=== PATIENT | male | born 1945 | race Caucasian/White ===

== ENCOUNTER 2016-12-08 15:11 | Inpatient (IN) ==
[2016-12-08 15:55] LABS: MANUAL DIFF NEEDED? NO
--- NOTE | 2016-12-08 16:00 | EKG Report ---
Test Performed on : 12/08/2016 3:25:19 PM Test Reason : Chest Pain Blood Pressure : / mmHG Vent. Rate : 102 BPM Atrial Rate : 102 BPM P-R Int : 134 ms QRS Dur : 082 ms QT Int : 348 ms P-R-T Axes : 016 002 041 degrees QTc Int : 453 ms Sinus tachycardia. Inferior infarct , age undetermined Abnormal ECG No previous ECGs available Unconfirmed Result
--- NOTE | 2016-12-08 16:10 | Diag Imaging Result Doc PS360 ---
EXAM: CHEST-2 VIEWS HISTORY: CP TECHNIQUE: PA and lateral COMMENT: There is a small ill-defined opacity which is projected over the right third anterior rib laterally in the right upper lobe. This was not present on 12/03/2016. There is also some blunting the costophrenic angle on the right which may be due to fibrosis although this was not present at the time the previous study either. The heart size and pulmonary vascularity are within normal limits. IMPRESSION: Minimal right upper lobe pneumonia. Electronically signed by Azael Zhao 12/08/2016 4:08 PM
[2016-12-08 16:14] LABS: BASO% 0.5 % (0.0-0.8); EOS# 0.37 X1000 (0.0-0.7); EOS% 4.6 % (0.0-10.0); HEMATOCRIT 39.1 % (42.0-52.0); HEMOGLOBIN 13.1 g/dL (14.0-18.0); LYMPH# 1.09 X1000 (1.2-3.4); LYMPH% 13.5 % (20.5-51.1); MCHC 33.5 g/dL (33-37); MCV 89.5 FL (81-99); MONO# 0.63 X1000 (0.11-0.59); MONO% 7.8 % (1.7-9.3); MPV 8.8 FL (7.4-10.4); NEUT% 73.6 % (42.2-75.2); PLT 211 X1000 (130-400); RBC 4.37 XMIL (4.7-6.1)
[2016-12-08 16:23] LABS: INR 0.97; PROTIME 10.2 Seconds (9.2-11.7); PTT 26.7 Seconds (22.0-36.0)
[2016-12-08 16:33] LABS: AGAP 14; ALBUMIN 3.9 g/dL (3.5-5.0); ALKALINE PHOSPHATASE 72 U/L (32-122); BUN 19 mg/dL (8-22); CHLORIDE 101 mmol/L (98-107); CK PROFILE 76 U/L (24-204); COSMO 279; GOT 17 U/L (10-34); GPT 13 U/L (10-44); MAGNESIUM 2.1 mg/dL (1.5-2.7); POTASSIUM 4.1 mmol/L (3.5-5.1); SODIUM 138 mmol/L (136-145); TCO2 23 mmol/L (25-35); TOTAL BILIRUBIN 0.49 mg/dL (0.20-1.00); TOTAL PROTEIN 6.9 g/dL (6.3-8.3)
[2016-12-08] MEDS ORDERED: MORPHINE IV ONE (17:57)
[2016-12-08] MEDS ORDERED: ZOFRAN IV ONE (17:57)
[2016-12-08] MEDS ORDERED: LOVENOX 1 MG/KG SUBQ ONE (18:45)
--- NOTE | 2016-12-08 18:55 | Diag Imaging Result Doc PS360 ---
EXAM: ANGIOGRAM/PULMONARY ARTERIES HISTORY: SOB, elevated d-dimer TECHNIQUE: CT of the chest with intravenous contrast and dose reduction (clarity.) COMMENT: There is a saddle embolus bridging the left and right main pulmonary arteries. Considerable burden of emboli is present in the interlobar artery on the right. There are also emboli present in some of the segmental branches of the left lower lobe. There is no evidence of aortic dissection. There is a small right pleural effusion. There is atelectasis in both lower lobes. There are no previous studies. There are degenerative changes in the thoracic spine. There are several renal cysts on the right. IMPRESSION: Pulmonary emboli as described including a saddle embolus. The findings were discussed with MADHURI Swenson at 12/08/2016 6:40 PM. Electronically signed by Azael Zhao 12/08/2016 6:52 PM
[2016-12-08] MEDS ORDERED: ROCEPHIN 1 GM/NS 1 GM/50 ML IVPB IV ONE (19:02)
--- NOTE | 2016-12-08 19:17 | PROVIDER DOCUMENTATION ---
This chart was entered by Myesha Andres Scribe, acting as scribe for Mohit Dumont PA. HPI-Respiratory General - General Chief Complaint: Chest Pain Stated Complaint: CHEST PAIN Time Seen by Provider: 12/08/16 17:56 Source: patient Allergies/Adverse Reactions: Patient Allergies Allergy/AdvReac Type Severity Reaction Status Date / Time No Known Allergies Allergy Verified 12/08/16 17:41 Home Medications: Home Medication List Medication Instructions Recorded Confirmed Last Taken Type Aspirin [Aspir-Low] 81 mg PO QAM 12/08/16 12/08/16 12/08/16 History Doxazosin Mesylate [Cardura] 8 mg PO QHS 12/08/16 12/08/16 1 Day Ago History Lisinopril 10 mg PO QAM 12/08/16 12/08/16 12/08/16 History Meclizine [Antivert] 25 mg PO TID 12/08/16 12/08/16 12/08/16 History - History of Present Illness-Resp Nature of Presenting Problem: 71 Y/O M presents to ED with Shortness of Breath. Pt was riding his bike 5 days ago, and had severe pain his right leg and acute SOB. Went to PCP the next day and had an out patient X-ray states he does not what those showed. States increased hurting with breathing that has worsened today. Quality of Pain: reports: tightness Severity in ED: reports: severe Onset/Duration: reports: 5 days ago Timing: reports: still present, changing over time, getting worse Associated Symptoms: reports: hurts to breathe, shortness of breath. denies: cough, earache, wheezing Review of Systems - Adult - REVIEW OF SYSTEMS - ADULT Constitutional: denies: chills, fever Eyes: reports: no symptoms reported Ears, Nose, Mouth & Throat: reports: no symptoms reported Cardiovascular: reports: no symptoms reported Respiratory: reports: shortness of breath, other (hurting to breath). denies: cough Gastrointestinal: reports: no symptoms reported Genitourinary: reports: no symptoms reported Musculoskeletal: reports: no symptoms reported Integumentary: reports: no symptoms reported Neurological: reports: no symptoms reported Psychiatric: reports: no symptoms reported Endocrine: reports: no symptoms reported Hematologic/Lymphatic: reports: no symptoms reported Allergic/Immunologic: reports: no symptoms reported All Other Systems: Reviewed and Negative Past History - Adult - PAST MEDICAL HISTORY-ADULT Review of Records: reports: Old Records Reviewed, Nursing Assessment Review, Medications Reviewed, Social history reviewed & non-contributory. Physical Exam-General - PHYSICAL EXAM-ADULT Initial Vital Signs Reviewed: Yes - CONSTITUTIONAL General Appearance: appears well, alert, no apparent distress - EYES Eyes: PERRL/EOMI, pink conjunctivae - HEAD, EARS, NOSE, MOUTH & THROAT HENMT: normocephalic/atraumatic, moist mucous membranes, normal ENT inspection, TMs normal, pharynx normal - NECK Neck: non-tender, full range of motion, supple, normal inspection - RESPIRATORY Respiratory: chest non-tender, lungs clear, normal breath sounds - CARDIOVASCULAR Cardiovascular: tachycardia - GASTROINTESTINAL (ABDOMEN) Abdominal Exam: normal bowel sounds, non tender, soft - LYMPHATIC Lymphatic: no adenopathy - MUSCULOSKELETAL Back Exam: normal inspection, no CVA tenderness, no vertebral tenderness Extremity: normal range of motion, non-tender, normal gait - SKIN Integumentary: normal color, normal turgor, warm/dry - NEUROLOGIC Neurologic: grossly normal - PSYCHIATRIC Psych/Mental Status: normal mood/affect, normal thought content, normal thought process, oriented x 3 Progress - PLAN OF CARE/RESULTS Progress/Plan/Lab Results: Vital Signs - 8 hr 12/08/16 15:14 12/08/16 18:13 12/08/16 18:58 Temperature 97.9 F Pulse Rate 116 H 83 87 Respiratory Rate 18 20 16 Blood Pressure 141/82 175/102 157/100 O2 Sat by Pulse Oximetry 99 96 96 Laboratory Results - last 24 hr 12/08/16 12/08/16 12/08/16 15:36 15:36 15:36 WBC RBC Hgb Hct MCV MCH MCHC RDW Std Deviation Plt Count MPV Immature Gran % (Auto) Neut % (Auto) Lymph % (Auto) [place] % (Auto) Eos % (Auto) Baso % (Auto) Immature Gran # (Auto) Neut # (Auto) Lymph # (Auto) [place] # (Auto) Eos # (Auto) Baso # (Auto) PT INR PTT (Actin FS) D-Dimer 27.55 H Sodium 138 Potassium 4.1 Chloride 101 Carbon Dioxide 23 L Anion Gap 14 BUN 19 Creatinine 1.1 Estimated GFR/1.73 m2 > 60 BUN/Creatinine Ratio 17 Glucose 116 H Calculated Osmolality 279 Calcium 9.0 Magnesium 2.1 Total Bilirubin 0.49 AST 17 ALT 13 Alkaline Phosphatase 72 Creatine Kinase 76 Troponin T < 0.010 Cdl-S-Gvbvsmkrgaf Pept Total Protein 6.9 Albumin 3.9 Globulin 3.0 Albumin/Globulin Ratio 1.3 12/08/16 12/08/16 12/08/16 15:36 15:36 15:36 WBC 8.05 RBC 4.37 L Hgb 13.1 L Hct 39.1 L MCV 89.5 MCH 30.0 MCHC 33.5 RDW Std Deviation 13.1 Plt Count 211 MPV 8.8 Immature Gran % (Auto) 0.0 Neut % (Auto) 73.6 Lymph % (Auto) 13.5 L [place] % (Auto) 7.8 Eos % (Auto) 4.6 Baso % (Auto) 0.5 Immature Gran # (Auto) 0.00 Neut # (Auto) 5.92 Lymph # (Auto) 1.09 L [place] # (Auto) 0.63 H Eos # (Auto) 0.37 Baso # (Auto) 0.04 PT 10.2 INR 0.97 PTT (Actin FS) 26.7 D-Dimer Sodium Potassium Chloride Carbon Dioxide Anion Gap BUN Creatinine Estimated GFR/1.73 m2 BUN/Creatinine Ratio Glucose Calculated Osmolality Calcium Magnesium Total Bilirubin AST ALT Alkaline Phosphatase Creatine Kinase Troponin T Ujq-T-Nqamgtgaupo Pept 85 Total Protein Albumin Globulin Albumin/Globulin Ratio Orders Category Date Time Status ANGIOGRAM/PULMONARY ARTERIES [CT] Stat Exams 12/08/16 17:56 Completed CHEST-2 VIEWS [RAD] Stat Exams 12/08/16 15:27 Completed BLOOD CULTURE [BLDCUL] Stat Lab 12/08/16 18:47 Received CBC WITH ELECTRONIC DIFF [HEME] Stat Lab 12/08/16 15:36 Completed CK PROFILE [SP CHEM] Stat Lab 12/08/16 15:36 Completed COMPREHENSIVE METABOLIC PANEL [CHEM] Stat Lab 12/08/16 15:36 Completed D-DIMER [CHEM] Stat Lab 12/08/16 15:36 Completed LACTATE, PLASMA [CHEM] Stat Lab 12/08/16 18:47 Received MAGNESIUM [CHEM] Stat Lab 12/08/16 15:36 Completed PRO B-NATRIURETIC PEPTIDE Stat Lab 12/08/16 15:36 Completed PROTIME WITH INR [COAG] Stat Lab 12/08/16 15:36 Completed PTT [COAG] Stat Lab 12/08/16 15:36 Completed TROPONIN T Stat Lab 12/08/16 15:36 Completed CefTRIAXONE 1 GM/NS [Rocephin 1 gm/Ns] Med 12/08/16 19:02 Active 1 gm in 50 ml IV NOW Enoxaparin 1 mg/kg [Lovenox 1 mg/kg] Med 12/08/16 18:45 Discontinued 1 each SUBQ NOW ONE Morphine Med 12/08/16 17:57 Discontinued 4 mg IV NOW ONE Ondansetron [Zofran] Med 12/08/16 17:57 Discontinued 4 mg IV NOW ONE EKG [EKG] Stat Ther 12/08/16 15:27 Draft Result Diagrams: 12/08/16 15:36 12/08/16 15:36 - XRAY 1 XRAY Study: Chest Impression: Abnormal XRAY Interpretation: RUL pneumonia - CT/MRI 1 CT Study: Angiogram Impression: Abnormal CT Results: saddle PE, Spoke with Radiologist - CONSULTS/PCP/HOSPITALIST Notification #1 *Consult/PCP/Hospitalist*: Dr. Charles Time Discussed: 19:14 Reason/Comments: Admit Consult Disposition: Admit (Admit Accepted) Departure - Departure Date of Disposition Decision: 12/08/16 Time of Disposition Decision: 19:16 DIAGNOSIS: Saddle embolism of pulmonary artery Qualifiers: Chronicity: acute Acute cor pulmonale presence: without acute cor pulmonale Qualified Code(s): I26.92 - Saddle embolus of pulmonary artery without acute cor pulmonale Pneumonia Qualifiers: Pneumonia type: due to unspecified organism Laterality: right Lung location: upper lobe of lung Qualified Code(s): J18.1 - Lobar pneumonia, unspecified organism Disposition: ADMITTED INPATIENT 09 Certified Medical Emergency: Emergent Condition: Stable Referrals and Follow-Ups: Dani Charles MD [Primary Care Provider] - - Critical Care Note This patient required my direct & personal management of CC.: Yes Total Time (mins): 20 Critical Care Statement: This patient required my direct personal management to treat or rule out processes, the absence of which, could potentiallly result in sudden, clinically significant life or limb threatening deterioration. Attestation - Physician/ KENNEDI Attestation Patient care was provided by Advanced Practice Provider:: Yes Advanced Practice Provider:: Mohit Dumont Advanced Practice Provider documentation review:: The Mid-level provider documentation, treatment plan and medical decision making was reviewed by the physician who agrees with all treatment and medical decision making by the MLP. This chart was documented by the indicated scribe, (Myesha Andres Scribe) and accurately reflects the services I performed and decisions made by Tim oliva Steven Wesley, PA, as attested by the provider's signature.
[2016-12-08] MEDS ORDERED: LOVENOX SUBQ ONE (19:45)
[2016-12-08] MEDS: CARDURA PO SCH (22:43)
--- NOTE | 2016-12-09 00:37 | HISTORY AND PHYSICAL ---
CHIEF COMPLAINT: Worsening dyspnea on exertion. HISTORY OF PRESENT ILLNESS: Mr. Simmons is a 71-year-old gentleman with a history of hypertension and benign prostatic hypertrophy, who first presented to my office on 12/03 because of unusual shortness of breath while riding his bicycle the day before. At that time, he had no shortness of breath at rest, and no leg pain or swelling. He also complained of some intermittent lightheadedness. He had no chest pain. His blood pressure was high-normal, and his oxygen saturation on room air was 94%. A chest x-ray was performed and reported as normal. Since last Tuesday, he has had nearly daily dyspnea on exertion, but been fairly comfortable at rest. Today, he has become short of breath walking across the room. He has also had about 24 hours of occasional pleuritic sharp chest pains on inspiration in the right pectoral area. He has had no hemoptysis, fever, chills, or sputum production. He also has noticed some right leg or right calf tenderness and swelling. He also says that his varicose veins there seem less apparent than usual. He now recalls a 13-hour drive from [facility] to [place], which he did with minimal stops, approximately 3 weeks ago. In the emergency room, his D-dimer was quite elevated, and a CT angiogram of the chest showed a saddle embolus and multiple right-sided pulmonary emboli. He has no previous history of blood clots, but says his brother was diagnosed with DVT of the leg after a lengthy airplane flight several years ago. PAST MEDICAL HISTORY: Remarkable for hypertension, recently treated with medication. He has complained of some mild fatigue and had borderline elevated TSH approximately 5 to 5.5 on 2 occasions, and I plan to begin thyroid replacement soon. PAST SURGICAL HISTORY: Remarkable for bilateral cataract extraction and surgery for a detached retina. ALLERGIES: He has no known drug allergies. HOME MEDICATIONS: 1. Aspirin 81 mg daily. 2. Lisinopril 10 mg q.a.m. 3. Doxazosin 8 mg at bedtime. 4. Antivert 25 mg t.i.d. p.r.n. for dizziness. FAMILY HISTORY: His mother from a stroke, his father from prostate cancer. His brother, as noted above, has a history of DVT. SOCIAL HISTORY: He is and lives alone, except for one son who intermittently lives with him. 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 He smoked cigarettes in the past, and smokes marijuana occasionally. He has a history of episodic alcohol intake, but has had no alcohol in the past 2 weeks, and minimal alcohol in the past month. REVIEW OF SYSTEMS: Constitutional: Positive for mild fatigue, a recent 20-pound weight gain that has improved somewhat with recent exercise. HEENT: Vision and hearing are adequate, without recent changes. He wears hearing aids, but now he uses only the left one as the one was damaged. Cardiovascular: No history of angina or ischemic heart disease. No history of congestive heart failure or valvular heart disease. No recent palpitations, syncope, or near syncope. Respiratory: No history of reactive airway disease. No recent cough or orthopnea. Gastrointestinal: Appetite is good. No recent abdominal pain, diarrhea, constipation, melena, or bright red blood per rectum. No history of GI bleeding. Genitourinary: He has sees Dr. Taylor for BPH. No recent dysuria or hematuria. Musculoskeletal: No joint pain, muscle aches, or stiffness. Skin: No rash or itching. Neurologic: No history of strokes or seizures. No recent falls or headache. No tremor. No vertigo. Balance is good. Psychiatric: No history of mood, memory, or thought disorders. Endocrine: No history of diabetes. Subclinical to barely symptomatic hypothyroidism is present. PHYSICAL EXAMINATION: VITAL SIGNS: Temperature 97.9 degrees, pulse is 87, blood pressure 157/100, respiratory rate 16, O2 saturation 96% on room air. GENERAL APPEARANCE: A slightly plethoric gentleman who appears somewhat younger than his stated age and is relaxed and comfortable lying on a stretcher. HEENT: There is no visible trauma. Pupils are equal, round, reactive to light. Extraocular movements are intact. Oropharynx is benign. NECK: Supple, with no adenopathy, JVD, thyromegaly, or bruits. LUNGS: Clear to auscultation anteriorly and posteriorly. There are no crackles or wheezes present. CARDIOVASCULAR: There is a regular rate and rhythm. Normal S1, S2. No S3, S4, or murmurs. ABDOMEN: Soft, nontender, minimally obese, with active bowel sounds. There are no palpable masses, and no guarding or rebound tenderness. GENITAL/RECTAL: Deferred. EXTREMITIES: There is some superficial varicose veins in the left calf. There is slight right calf muscle tenderness, but Daniel's sign is negative. NEUROLOGIC: Speech is clear and well-articulated. Cranial nerve examination is unremarkable. He moves all extremities on command. Gait is not tested. LABORATORY FINDINGS: White blood count 8000, hemoglobin 13.1, hematocrit 39.1%. MCV is normal. D-dimer is 27.5. PT and PTT are normal. Chemistry profile is normal, with glucose of 116 nonfasting. Troponin is negative. ProBNP is normal. Plasma lactate is 1.3. CT this angiogram of the chest shows bilateral pulmonary emboli with a saddle embolus, as noted above. ASSESSMENT: 1. Dyspnea on exertion due to subacute bilateral pulmonary emboli. 2. Probable deep venous thrombosis in the right leg. 3. Essential hypertension, partially controlled. 4. History of episodic alcohol use. TREATMENT PLAN: He has been given a dose of Lovenox subcutaneously in the emergency room, 1 mg/kg, and will be admitted and continued on this. With the high thrombus burden, I feel inpatient observation is clearly indicated for at least 72 hours. I have ordered a venous Doppler of both lower extremities tomorrow, as this will give us something to follow, and help decide when it is safe to stop anticoagulation in 3-6 months. I think with his family history of DVT, it is probably worth doing a hypercoagulability workup in the future when he is off anticoagulants. He will be observed on a sewer pipe offbearer for possible arrhythmias. He does not now need oxygen, but I have ordered it. O2 protocol if and only if he has low O2 saturations. If his O2 saturation drops or blood pressure drops and he becomes hemodynamically unstable, he may be a candidate for emergency thrombectomy or thrombolytic therapy. cc: Dani Charles MD
[2016-12-09] MEDS: LOVENOX SUBQ SCH ×2 (05:53→17:32)
[2016-12-09] MEDS: PRINIVIL PO SCH (09:46)
[2016-12-09] MEDS: ASPIRIN EC PO SCH (09:46)
[2016-12-09] MEDS ORDERED: TYLENOL PO PRN (21:04)
[2016-12-09] MEDS: CARDURA PO SCH (21:19)
[2016-12-10] MEDS: LOVENOX SUBQ SCH ×2 (06:18→19:19)
[2016-12-10] MEDS: PRINIVIL PO SCH (10:54)
[2016-12-10] MEDS: ASPIRIN EC PO SCH (10:55)
[2016-12-10] MEDS ORDERED: MIRALAX PO ONE (17:32)
[2016-12-10] MEDS ORDERED: MIRALAX PO PRN (17:32)
--- NOTE | 2016-12-10 18:41 | PROGRESS NOTE ---
DATE: 12/10/2016 SUBJECTIVE: The patient's chart was reviewed. In summary, patient was admitted with dyspnea on exertion secondary to pulmonary thromboemboli. Patient was placed on Lovenox therapy. A lower extremity venous Doppler was performed. The report is pending. Since hospitalization, patient's overall condition has improved slightly. He notes decreasing chest discomfort as well as decreasing shortness of breath. He has, however, not returned to his baseline pulmonary condition. Over the course of the last 24 hours, patient notes mild associated nausea. The patient denies having a bowel movement since hospitalized. His p.o. intake has been marginal. He denies fevers, chills, or palpitations. OBJECTIVE: T-max 98.8 degrees, heart rate 69-106, respirations 16-18, blood pressure 120 to 134 over 72 to 89.General: Well nourished, well developed, in no acute distress. Cardiovascular: Regular rate and rhythm. No significant murmurs, rubs, or gallops. Pulmonary: Clear to auscultation bilaterally. Abdomen: Soft, nontender, nondistended. Positive bowel sounds. Extremities: Moves all extremities well. No significant clubbing, cyanosis, or edema. Extremities: Moves all extremities well. No significant clubbing or cyanosis. Patient does have 1+ lower extremity edema on the right. Dermatologic: Evaluation reveals no evidence of rash. LABORATORY DATA: None. ASSESSMENT AND PLAN: 1. Pulmonary thromboemboli - patient has bilateral pulmonary thromboemboli and including a saddle embolus. At this point, I do feel aggressive management is warranted. We will continue Lovenox a mg per kg for now. Once the patient's overall condition has shown more improvement, we will consider transitioning to Lovenox therapy. The patient will require at least 6 months of therapy. At that time, hypercoagulable evaluation will be warranted. We will also plan a Hematology consultation once available. 2. Hypertension - at this point, we will continue home medications. Blood pressure is reasonably controlled. 3. Nausea - I am concerned this may be secondary to constipation. We will treat constipation with MiraLAX. We will add Zofran as needed. We will follow this closely. 4. Disposition - at this point, patient continues to require fdc care in the hospital setting. We will plan discharge home once appropriate. cc: MD Dani Escobedo, MD
[2016-12-10] MEDS: ZOFRAN IV PRN (19:19)
[2016-12-10] MEDS: CARDURA PO SCH (22:02)
[2016-12-11 05:56] LABS: MANUAL DIFF NEEDED? NO
[2016-12-11 06:01] LABS: BASO% 0.6 % (0.0-0.8); EOS# 0.42 X1000 (0.0-0.7); EOS% 6.3 % (0.0-10.0); HEMATOCRIT 37.5 % (42.0-52.0); HEMOGLOBIN 12.5 g/dL (14.0-18.0); IMM GRAN# 0.02 X1000 (0.0-0.04); IMM GRAN% 0.3 % (0.0-0.5); LYMPH# 1.32 X1000 (1.2-3.4); LYMPH% 19.8 % (20.5-51.1); MCH 29.8 PG (27-31); MCHC 33.3 g/dL (33-37); MCV 89.5 FL (81-99); MONO# 0.78 X1000 (0.11-0.59); MONO% 11.7 % (1.7-9.3); MPV 8.4 FL (7.4-10.4); NEUT% 61.3 % (42.2-75.2); PLT 238 X1000 (130-400); RBC 4.19 XMIL (4.7-6.1)
[2016-12-11] MEDS: LOVENOX SUBQ SCH ×2 (06:16→17:33)
[2016-12-11 06:17] LABS: INR 0.97; PROTIME 10.2 Seconds (9.2-11.7)
[2016-12-11 06:33] LABS: CALCIUM 8.4 mg/dL (8.8-10.2); POTASSIUM 4.6 mmol/L (3.5-5.1)
[2016-12-11] MEDS: PRINIVIL PO SCH (10:27)
[2016-12-11] MEDS: ASPIRIN EC PO SCH (10:27)
--- NOTE | 2016-12-11 11:47 | PROGRESS NOTE ---
DATE: 12/11/2016 SUBJECTIVE: This is a 71-year-old patient of Dr. Dani Charles'rishi. He was admitted with a right DVT and pulmonary thromboemboli. He is breathing better, feeling better. He has not had any fever, feels like his left leg is less swollen. LABORATORY DATA: Looking at lab from this morning, white count 6650, hematocrit 37, platelet count 238,000. Sodium 139, potassium 4.6, chloride 101, BUN 17, creatinine 1.2. ASSESSMENT AND PLAN: 1. Pulmonary thromboemboli, right lower extremity deep venous thrombosis including saddle embolus. Continue aggressive management. He is clinically doing better. I think he needs to stay in the hospital at least until Tuesday or Tuesday. He is on Lovenox therapy, and we will try and start p.o. anticoagulant. I think we need to determine what he can afford and also see about the extent of his thrombus load. He has not had any history of clots before, no history to suggest that he has a propensity for coagulopathy. 2. Blood pressure looks like it is good. Hemodynamics appear stable. 3. Air and gas exchange good. REVIEW OF ORDERS: He is on Cardura 8 mg at bedtime, aspirin 81 mg a day, Lovenox 1 mg/kg which comes out to 100 mg subcutaneous q.12 h., Prinivil 10 mg daily. He is on some MiraLAX. cc: MD Dani Fox MD
--- NOTE | 2016-12-11 14:17 | Extremity Venous Study ---
PROCEDURE NAME: Venous U/S Bilateral Legs - 12/09/2016 ACQUISITION MARKETING MANAGER: Brandon. REQUESTING PHYSICIAN: Melvin. INDICATIONS: Pulmonary embolus. FINDINGS: The deep and superficial veins were visualized throughout the bilateral lower extremities. There is extensive acute DVT noted throughout the deep system of the right lower extremity. This starts in the common femoral vein, extends down to the level of the tibial vessels. There is significantly diminished flow in the superficial and deep femoral vein proximally and absent flow noted at the level of popliteal. There is visualized thrombus, lack of compressibility and diminished flow noted. On the left side all vessels appear patent, compressible, without any evidence of intraluminal thrombus and forward flow. SUMMARY: Extensive deep venous thrombosis in the right lower extremity extending throughout the deep system proximally to distally. On the left no deep or superficial venous thrombosis seen. cc: MD Dani Calles MD
[2016-12-11] MEDS: CARDURA PO SCH (22:41)
[2016-12-11] MEDS: COUMADIN PO SCH (22:41)
[2016-12-12] MEDS: LOVENOX SUBQ SCH ×2 (05:21→17:00)
[2016-12-12 06:00] LABS: INR 0.98; PROTIME 10.3 Seconds (9.2-11.7)
[2016-12-12] MEDS: PRINIVIL PO SCH (10:06)
[2016-12-12] MEDS: ASPIRIN EC PO SCH (10:06)
--- NOTE | 2016-12-12 15:44 | Diag Imaging Result Doc PS360 ---
EXAM: CHEST-PORTABLE INDICATION: pte TECHNIQUE: One view COMPARISON: 12/08/2016 FINDINGS: There is a small stable focal opacity at the superior aspect of the right lower lobe in the right midlung zone. This is stable as compared to the previous radiograph as well as a previous CT dated 12/08/2016. There are no new consolidations. The lungs are grossly clear, otherwise. There is no discrete pleural fluid collection or pneumothorax. The cardiomediastinal silhouette and central vasculature are grossly unremarkable. IMPRESSION: Stable chest. Electronically signed by Loki Arias 12/12/2016 3:41 PM
--- NOTE | 2016-12-12 16:12 | PROGRESS NOTE ---
DATE: 12/12/2016 SUBJECTIVE: Mr. Simmons is feeling better. His right leg feels little softer. He feels like he is getting a little more air when he breathes. He is not as restricted. OBJECTIVE: Vital signs: Temperature 98.3 degrees, pulse 80, respirations 18, blood pressure 160/81. HEENT: Pupils are equal and round. Lungs: Clear in all lung nova. Cardiovascular: Regular rhythm and rate without murmur or S3. Abdomen: Soft. Skin: Warm and dry. Right leg with some varicosities, but soft and no tenderness. : Urine output is 2100 mL. LABORATORY: PT was 10.3, INR 0.98. Electrolytes look good from yesterday. ASSESSMENT AND PLAN: 1. Pulmonary thromboemboli. Right lower extremity deep venous thrombosis, including saddle embolus. Continue with aggressive management. Clinically much better. I started him on Coumadin. 2. Blood pressures look good. Hemodynamically stable. 3. Air and gas exchange looks good. We will check another chest x-ray today. Reviewed his orders. He is on Lovenox 100 mg q.12 hours. I started him on Coumadin 7.5 mg at bedtime, and Cardura 8 mg p.o. at bedtime, and MiraLAX 17 g a day. cc: MD Dani Fox MD
[2016-12-12] MEDS: COUMADIN PO SCH (22:41)
[2016-12-12] MEDS: CARDURA PO SCH (22:41)
[2016-12-13 07:35] LABS: PROTIME 10.5 Seconds (9.2-11.7)
[2016-12-13] MEDS: PRINIVIL PO SCH (09:44)
[2016-12-13] MEDS: ASPIRIN EC PO SCH (09:44)
--- NOTE | 2016-12-13 14:41 | PROGRESS NOTE ---
DATE: 12/13/2016 SUBJECTIVE: Breathing comfortably. His left leg is softer and feels less restriction with breathing. OBJECTIVE: Vital signs: He remains afebrile, temp 98.4 degrees, pulse 90, respirations 18, blood pressure 161/90. HEENT: Pupils are equal, round. Lungs: Clear in all lung nova. Cardiovascular: Regular rhythm and rate without murmur or S3. LAB: From today, his protime is 10.5, INR 1.0. Chest x-ray from yesterday, completely clear. ASSESSMENT AND PLAN: 1. Large pulmonary emboli, saddle embolus. Clinically improving. Continue his Lovenox. Have him on Coumadin. Remains hemodynamically stable and improving. He has a right DVT which clinically improving as well. 2. Benign prostatic hypertrophy. Aware. 3. Constipation. I do not see any change in his orders. He may get to go home tomorrow. I will see what his INR is. cc: MD Dani Fox MD
[2016-12-13] MEDS: LOVENOX SUBQ SCH (16:06)
[2016-12-13] MEDS: COUMADIN PO SCH (22:07)
[2016-12-13] MEDS: CARDURA PO SCH (22:07)
[2016-12-14] MEDS: LOVENOX SUBQ SCH ×3 (06:05→17:39)
[2016-12-14 06:11] LABS: INR 1.08; PROTIME 11.4 Seconds (9.2-11.7)
[2016-12-14] MEDS: PRINIVIL PO SCH (08:58)
[2016-12-14] MEDS: ASPIRIN EC PO SCH (08:59)
--- NOTE | 2016-12-14 18:06 | PROGRESS NOTE ---
DATE: 12/14/2016 SUBJECTIVE: Mr. Simmons is feeling pretty good today, but when he gets up he has a little bit lightheaded feeling still just for a couple of minutes and seems to get better. Blood pressure is doing well. OBJECTIVE: Vital signs: Pulse is 90, respirations 20, blood pressure 132/85. Eyes: Pupils are equal and round. Lungs: Are clear in all lung nova. Cardiovascular: Regular rhythm and rate without murmur or S3. Abdomen: Soft. Skin: Warm and dry. ProTime was 11.4. ASSESSMENT AND PLAN: 1. Large pulmonary saddle embolus. Clinically improving on Lovenox, bridging to Coumadin. Still has a little bit of lightheaded orthostasis feeling. 2. Benign prostatic hypertrophy, aware. 3. Constipation. Bowel movements good. I do not see any to change. We need to get his ProTime up to an INR of 2. Still having some symptoms from saddle embolus, so I am going to hang on to him until those are better. cc: MD Dani Fox MD
[2016-12-14] MEDS: COUMADIN PO SCH (20:59)
[2016-12-14] MEDS: CARDURA PO SCH (20:59)
[2016-12-15] MEDS: LOVENOX SUBQ SCH ×2 (05:04→16:24)
[2016-12-15] MEDS: ASPIRIN EC PO SCH (08:38)
[2016-12-15] MEDS: PRINIVIL PO SCH (08:38)
--- NOTE | 2016-12-15 12:54 | PROGRESS NOTE ---
DATE: 12/15/2016 SUBJECTIVE: Mr. Simmons is breathing better. When he gets up, he is not as lightheaded. OBJECTIVE: Vital Signs: Afebrile, temperature 98.2 degrees, pulse 80, respirations 18, blood pressure 139/83. Lungs: Are clear in all lung nova. Cardiovascular: Regular rhythm and rate without murmur or S3. Abdomen: Soft. Skin: Warm and dry. Urine output 900 mL. LABS: From the 3rd reviewed. Looks good. Pro-time yesterday was 11. Will check it again today. Anticipate he will get to go home tomorrow. ASSESSMENT AND PLAN: 1. Pulmonary thromboembolism. On Lovenox, bridged to Coumadin, and Coumadin 10 mg at bedtime. Review of his other orders, I do not see any change. Hopefully, will get him set up to go home tomorrow. 2. Benign prostatic hypertrophy. 3. Hypertension, well controlled. cc: MD Dani Fox MD
[2016-12-15 13:14] LABS: INR 1.69; PROTIME 18.4 Seconds (9.2-11.7)
[2016-12-15] MEDS: CARDURA PO SCH (20:54)
[2016-12-15] MEDS: COUMADIN PO SCH (20:54)
[2016-12-16] MEDS: ZOFRAN IV PRN (01:39)
[2016-12-16] MEDS: LOVENOX SUBQ SCH (05:23)
[2016-12-16 06:45] LABS: INR 2.04
[2016-12-16 06:46] LABS: PROTIME 22.4 Seconds (9.2-11.7)
[2016-12-16 07:32] VITALS: BP 116/71
[2016-12-16] MEDS: PRINIVIL PO SCH (09:22)
[2016-12-16] MEDS: ASPIRIN EC PO SCH ×2 (09:22→09:23)
--- NOTE | 2016-12-16 09:53 | DISCHARGE SUMMARY ---
ADMISSION DATE: 12/08/2016 DISCHARGE DATE: 12/16/2016 FINAL DIAGNOSES: 1. Right leg deep venous thrombosis with multiple pulmonary thromboemboli. 2. Dyspnea on exertion secondary to #1. 3. Essential hypertension. 4. Benign prostatic hypertrophy. PRESENT ILLNESS: Mr. Simmons is a 71-year-old male with a history of hypertension and BPH, who presents to the emergency room because of continued dyspnea on exertion. He was noted to have a very elevated D-dimer and CT angiogram of the chest showed multiple pulmonary emboli, including a saddle embolus. He had no previous history of DVT or blood clots, but did recall a lengthy car trip from [place] to [place] 3 weeks prior to admission. PHYSICAL EXAMINATION: Vital Signs: Pulse 87, blood pressure 157/100, O2 saturation 96% on room air. General appearance: Slightly plethoric gentleman who appears somewhat younger than stated age. He is comfortable on a stretcher. Lungs: Clear without crackles or wheezes. Cardiac Exam: Regular rate and rhythm. No murmurs or gallops. Extremities: The right leg is remarkable for very slight calf muscle tenderness and diffuse superficial varicose veins in the left calf. HOSPITAL COURSE: He was begun on full dose anticoagulation with Lovenox in the emergency room. A venous Doppler both lower extremities was done the following morning, and showed normal left leg deep veins, but extensive thrombus throughout the deep veins on the right side. He does have a brother with a history of DVT and he will be referred eventually for evaluation for hypercoagulable state. Due to the extensive nature of his DVT and pulmonary emboli, it was felt [place] to observe him in the hospital. He was transitioned to warfarin and after 3 doses of 7.5 mg at bedtime, was still subtherapeutic and this was changed to 10 mg. Today, after the second dose of 10 mg, his INR is 2.04 and he has completed a week of Lovenox. I feel he is safe to return home and treated as an outpatient now. 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 His blood pressure and O2 saturation and other hemodynamics remained normal. He was able to walk in the halls 2 laps around the 4th floor here without significant dyspnea on exertion. He is aware of the usual warfarin precautions regarding diet and avoiding nonsteroidal anti-inflammatory agents. He is discharged in stable and improving condition and is to return to my office next Tuesday for followup. DISCHARGE MEDICATIONS: Warfarin 10 mg at bedtime. Acetaminophen 650 mg q.4 hours p.r.n. for pain. He has stopped the 81 mg aspirin he was taking prior to admission. He is to continue doxazosin 8 mg at bedtime, lisinopril 10 mg daily. cc: Dani Charles MD
== END 2016-12-16 10:17 | disposition home or self-care (01) ==
LOC: ED 15:11 → 4N 20:40
PROVIDERS: ADMIT Internal Medicine; ATTEND Internal Medicine